=== PATIENT | male | born 1985 | race Caucasian/White ===

== ENCOUNTER → 2023-05-14 07:27 | Outpatient (REF) | payer OTHER, SELFPAY | LOC: EMG 07:27 | PROVIDERS: ATTENDING PHYSICIAN Nurse Practitioner Family | DX: R20.0 Anesthesia of skin (principal) | CPT/HCPCS: 95886; 95909 ==

== ENCOUNTER → 2023-08-08 15:16 | Outpatient (REF) | payer OTHER, SELFPAY | LOC: HWRAD 15:16 | PROVIDERS: ATTENDING PHYSICIAN Nurse Practitioner Family | DX: M25.561 Pain in right knee (principal) | CPT/HCPCS: 73564 ==

== ENCOUNTER 2023-09-15 13:01 | Emergency (ER) | payer OTHER, SELFPAY ==
[2023-09-15 13:05] VITALS: BP 129/81
[2023-09-15 13:24] LABS: % Basophils 0.3 % (0-2); % Eosinophils 1.2 % (0-6); % Immature Granulocytes 0.4 % (0-0.5); % Lymphocytes 17.3 % (20.5-51.1); % Monocytes 6.8 % (1.7-9.3); Absolute Eosinophils 0.1 10^3/uL (0-0.7); Absolute Immature Granulocytes 0.1 10^3/uL (0-0.05); Absolute Monocytes 0.8 10^3/uL (0.1-0.6); Absolute Neutrophils 8.5 10^3/uL (1.4-6.5); Hematocrit 39.4 % (39.0-52.0); Hemoglobin 13.4 g/dL (13.0-18.0); Mean Corpuscular Hgb 32.8 pg (27.0-31.0); Mean Corpuscular Volume 96.6 fL (80.0-94.0); Mean Platelet Volume 11.3 fL (7.4-10.4); Nucleated Red Blood Cells % 0 % (-); Platelet Count 202 10^3/uL (130-400); Red Blood Cell Count 4.08 10^6/uL (4.70-6.10); Red Cell Dist. Width 12.3 % (11.5-14.5); White Blood Cell Count 11.5 10^3/uL (4.8-10.8)
[2023-09-15 13:36] LABS: Urine Albumin 2+ (Neg - Trace); Urine Bilirubin Negative (Negative); Urine Character Very Cloudy (Clear); Urine Color Red; Urine Glucose Negative (Negative); Urine Ketone Trace (Negative); Urine Leukocyte 2+ (Negative); Urine Nitrite Negative (Negative); Urine Occult Blood 4+ (Negative); Urine Specific Gravity 1.015 (<1.030); Urine Urobilinogen 1+ (Neg - 1+)
[2023-09-15 13:46] LABS: ALT (SGPT) 53 U/L (0-50); AST (SGOT) 46 U/L (17-59); Albumin 4.7 g/dl (3.5-5.0); Alkaline Phosphatase 73 U/L (38-126); Blood Urea Nitrogen 18 mg/dl (9-20); Calcium 9.7 mg/dl (8.4-10.2); Carbon Dioxide 28 mmol/L (22-30); Chloride 102 mmol/L (98-107); Glucose 103 mg/dl (70-99); Sodium 139 mmol/L (135-145); Total Bilirubin 1.5 mg/dl (0.2-1.3); Total Protein 7.5 g/dl (6.3-8.2); Urine Red Blood Cell >100 /HPF (0-2); eGFR > 60.00
[2023-09-15 15:00] VITALS: BP 134/85
--- NOTE | 2023-09-15 15:18 | ED.GENMED ---
History of Present Illness
General
Chief Complaint: Urinary Symptoms
Source: patient
Exam Limitations: none
Time Seen by Provider: 09/15/23 15:09
History of Present Illness
History of Present Illness:
Patient started 5 days ago with some fever and chills. This was followed by some urinary urgency frequency and more recently has noted some blood in the urine. At times it was a slight clot of blood at times more wine colored. He does have
frequency and urgency now but in the waiting room urinated 4-5 times without blood. No Tylenol or antipyretics in the last few days.
Past History
Past History
ED Past Medical History: Other (Pulmonary emboli)
ED Past Surgical History: Orthopedic and Other (Knee)
Social History
Tobacco: Non-smoker
Alcohol: Occasional
Drug: Marijuana
Personal: Single
Living: alone
Employment: Employed
Review of Systems
Review of Systems
All Other Systems: Not applicable
: Denies flank pain
Phy Exam
Physical Exam
Physical Exam:
GENERAL: Alert and oriented in no apparent distress. Ambulating without difficulty
EYE: Orbits normal.
NECK: Supple
CARDIAC: Regular rate and rhythm without any obvious murmurs.
LUNGS: Clear breath sounds,normal
ABDOMEN: Soft, without focal tenderness or distention. No CVA tenderness
NEUROLOGICAL: Alert and oriented , grossly non-focal
SKIN: Warm and dry, no rash or lesion, no discoloration, skin intact.
MUSCULOSKELETAL: No edema,no deformity.Good color
PSYCH: Normal and appropriate interaction..
Course
Orders/Labs/Results
Orders:
Orders
09/15/23 13:16
CMP [Comprehensive Metabolic Panel] Urgent
Complete Blood Count/With Diff Urgent
Urinalysis Reflex To Culture Urgent
Date Specimen was Collected: 09/15/23
Time Specimen was Collected: 13:10
Urine Microscopic Reflex Cult Urgent
Chlamydia/GC by PCR Urgent
WILLIAN Source: U
Specimen Description:
Source:: URINE
Date Specimen was Collected: 09/15/23
Time Specimen was Collected: 13:10
Urine Culture Urgent
WILLIAN Source: U
Specimen Description:
Date Specimen was Collected: 09/15/23
Time Specimen was Collected: 13:10
09/15/23 15:18
Add On- LAB Urgent
Tests Added?: urine gc/chlymadia
CT Abd/pel Without Iv Or Oral Urgent
Comment:
Reason For Exam: Hematuria/UTI
09/15/23 17:44
Ciprofloxacin HCl [Cipro] 500 mg PO NOW STA
Abnormal Lab Results
09/15/23
13:16
WBC 11.5 H 10^3/uL
(4.8-10.8)
RBC 4.08 L 10^6/uL
(4.70-6.10)
MCV 96.6 H fL
(80.0-94.0)
MCH 32.8 H pg
(27.0-31.0)
MPV 11.3 H fL
(7.4-10.4)
Abs Immat Gran (auto) 0.1 H 10^3/uL
(0-0.05)
Absolute Neuts (auto) 8.5 H 10^3/uL
(1.4-6.5)
Absolute Monos (auto) 0.8 H 10^3/uL
(0.1-0.6)
Lymphocytes % 17.3 L %
(20.5-51.1)
Glucose 103 H mg/dl
(70-99)
Total Bilirubin 1.5 H mg/dl
(0.2-1.3)
ALT 53 H U/L
(0-50)
Urine Ketones Trace A
(Negative)
Ur Occult Blood Reflex 4+ A
(Negative)
Leukocyte Esterase Rfl 2+ A
(Negative)
Urine RBC >100 A /HPF
(0-2)
Urine Albumin (Reflex) 2+ A
(Neg - Trace)
09/15/23 13:16
09/15/23 13:16
Vital Signs
Initial and Last Documented VS:
Initial Vital Signs
Temp Pulse Resp BP Pulse Ox
99.7 F 94 18 129/81 95
09/15/23 13:05 09/15/23 13:05 09/15/23 13:05 09/15/23 13:05 09/15/23 13:05
Last Documented Vital Signs
Temp Pulse Resp BP Pulse Ox
98.5 F 83 18 124/73 95
09/15/23 17:00 09/15/23 17:00 09/15/23 17:00 09/15/23 17:00 09/15/23 17:00
MDM/Problems Addressed
Differential Diagnosis Includes:
Patient with urinary symptoms. He is on preexposure prophylaxis. He did entertain the idea of a sexually transmitted disease although he does preexposure prophylaxis and 2 doses of doxycycline. He has no discharge or ulceration. Workup will
include a CAT scan and urine for GC and chlamydia. Clinically nontoxic
*Radiology
Radiology exam reviewed: radiology read reviewed (Prostatic hypertrophy. Bladder wall thickening. Possible outlet issue)
*Pulse Oximetry
Patient hypoxic: no
*Critical Care Note
Total Time (30-74mins, 75-104mins- exclusive of procedures): Not Applicable
Update Note
Update Note:
Patient is able to urinate and feels like his flow is actually better. He is nontoxic. Will start Cipro for UTI/prostatitis. Will also do Flomax. Discussed urinary retention concerns and he will watch this closely. Also will follow-up with
urology.
ED Attending Note
-
Portions of this chart may have been created with voice recognition software.� Occasional wrong word or��sound alike� substitutions may have occurred due to the inherent limitations of voice recognition software.
Discharge Plan
Departure
Patient Disposition: Home (Routine Discharge)
Date of Disposition: 09/15/23
Time of Disposition: 17:46
Patient with high blood pressure during this ER visit?: Yes
Discharge Problem:
UTI/prostatitis
Instructions: Urinary Tract Infection, Adult (DC), Prostatitis (DC), BLOOD PRESSURE
Prescriptions:
New
ciprofloxacin HCl 500 mg tablet
500 mg PO BID Qty: 20 0RF
tamsulosin [Flomax] 0.4 mg capsule
0.4 mg PO DAILY Qty: 14 0RF
No Action
multivitamin Tablet
1 tab PO DAILY
Descovy 200-25 mg tablet
1 tab PO QPM
ibuprofen [Advil] 200 mg Tablet
400 mg PO Q8HPRN PRN (Reason: mild pain)
gabapentin 100 mg Capsule
100 mg PO DAILYPRN PRN (Reason: nerve pain)
Referrals:
Nelson Mcwilliams CRNP [Family Provider] - Follow up in 2-3 days
Kalin Brown MD [Active] - Next open appointment
Activity Restrictions/Additional Instructions:
As we discussed, if your urinary issues or flow become a larger issue or do not improve please return immediately for reevaluation
Interventions
Interventions:
*Risk Screen - Suicide Last Done: 09/15/23 18:08
*General Assessment Last Done: 09/15/23 18:08
*Neglect/Abuse Screening Last Done: 09/15/23 18:08
ED- Fall Risk Assessment Last Done: 09/15/23 15:56
*ED COVID-19 Vaccine History Last Done: 09/15/23 18:08
ED-Male Genitourinary Assessment Last Done: 09/15/23 17:50
Discharge Date and Time
Print Language: MAURITIAN
[2023-09-15 17:00] VITALS: BP 124/73
[2023-09-15] MEDS: CIPRO 500 MG PO (18:05)
== END 2023-09-15 19:21 | disposition home or self-care (01) ==
LOC: EMR 13:01
PROVIDERS: Emergency Medicine; EMERGENCY PHYSICIAN Emergency Medicine; FAMILY PHYSICIAN Nurse Practitioner Family
DX: N39.0 Urinary tract infection, site not specified (principal); N41.9 Inflammatory disease of prostate, unspecified
CPT/HCPCS: 99284; 74176; 80053; 81003; 81015; 85025; 87077; 87086; 87491; 87591

== ENCOUNTER → 2024-10-16 07:23 | Outpatient (REF) | payer OTHER, SELFPAY | LOC: HWRAD 07:23 | PROVIDERS: ATTENDING PHYSICIAN Nurse Practitioner Family | DX: R94.5 Abnormal results of liver function studies (principal) | CPT/HCPCS: 76700 ==